=== PATIENT | male | born 1955 ===

== ENCOUNTER 2021-05-04 10:00 | Inpatient (IN) | payer OTHER ==
[~2021-05-04] VITALS: Ht 350.5 cm; Wt 99.8 kg
[2021-05-04] MEDS ORDERED: COZAAR100 MG (12:20)
[2021-05-04] MEDS ORDERED: VOLTAREN (12:21)
[2021-05-08] MEDS ORDERED: DICLOFENAC SODI50 MG (14:34)
[2021-05-10] MEDS ORDERED: XARELTO10 MG PO (06:20)
[2021-05-10] MEDS ORDERED: BACTRIM DS TAB1 EACH PO (06:20)
[2021-05-10] MEDS ORDERED: OXYC1TAB9 PO (06:20)
[2021-05-10] MEDS ORDERED: INTEGRA PLUS C1 EACH PO (06:20)
[2021-05-11] MEDS ORDERED: OXYC1TAB9 PO (08:27)
[2021-05-11] MEDS ORDERED: XARELTO10 MG PO (08:27)
[2021-05-11] MEDS ORDERED: INTEGRA PLUS C1 EACH PO (08:27)
[2021-05-11] MEDS ORDERED: BACTRIM DS TAB1 EACH PO (08:27)
== END 2021-05-11 16:50 | disposition home or self-care (01) | DRG 470 ==
LOC: O/R 05-08 09:03 → SURH 05-08 10:00 → SURG 05-08 20:50
PROVIDERS: ADMIT Orthopaedic Surgery Sports Medicine; ATTEND Orthopaedic Surgery Sports Medicine
PROC: 0SRD0J9 Replacement of Left Knee Joint with Synthetic Substitute, Cemented, Open Approach (ICD-10-PCS; principal; 2021-05-08 12:15)
DX: M17.12 Unilateral primary osteoarthritis, left knee (principal); Z20.822 Contact with and (suspected) exposure to COVID-19; I10 Essential (primary) hypertension